=== PATIENT | female | born 1950 | race Caucasian/White ===

== ENCOUNTER → 2018-04-12 10:23 | Outpatient (CLI) | payer MEDICARE, SELFPAY ==
--- NOTE | 2018-04-12 10:33 | XR_ITS ---
XR chest 2V HISTORY: ITS.REASON: PNEUMONIA ORDERING PHYSICIAN: Michele Hines MD PATIENT AGE: 68 years COMPARISON: 05/23/2015 FINDINGS: The cardiomediastinal silhouette and pulmonary vascularity are within normal limits. There is mild hyperinflation with attenuation of the peripheral pulmonary vessels consistent with small airway disease. No lobar consolidation or collapse. No acute bony anomalies. IMPRESSION: Hyperinflation suggesting small airway disease such as bronchitis or asthma
== END ==
PROVIDERS: PCP Family Medicine; Visit Provider Family Medicine
DX: J18.1 Lobar pneumonia, unspecified organism (principal)
CPT/HCPCS: 71046

== ENCOUNTER 2021-12-30 07:19 | Emergency (ER) | payer MEDICARE, SELFPAY ==
[2021-12-30] VITALS (13 sets, daily range): BP systolic 109–177; BP diastolic 65–90; PULSE 62–110; RESP 16–22; TEMP 36.6–37.3; O2SAT 97–99; BMI 20.1
--- NOTE | 2021-12-30 | ECG_ITS ---
APPROVED REPORT Exam: Resting ECG HR:95 bpm ECG Measurements Heart Rate 95 AXES OR 150 P 90 QRSd 76 QRS 60 QT 319 T 82 QTc 372 Conclusion SINUS RHYTHM POSSIBLE LEFT ATRIAL ENLARGEMENT [-0.1mV P-WAVE IN V1/V2] BORDERLINE ECG UNCONFIRMED REPORT Electronically signed by : Michele Auguste MD 12/30/2021 14:46:42
--- NOTE | 2021-12-30 07:23 | XR_ITS ---
FINAL REPORT TECHNIQUE: Single view chest CLINICAL HISTORY: Midsternal chest pain COMPARISON: 04/12/2018 FINDINGS: A single view of the chest was obtained. The heart and mediastinum are within normal limits. The lungs are clear. There is no pneumothorax. Osseous structures are unremarkable. IMPRESSION: No acute cardiopulmonary process. Reviewed, Interpreted and Dictated by Jr Osman III, MD Transcribed by Sybil Gu Authenticated and [facility]
--- NOTE | 2021-12-30 07:28 | PC.NURSE ---
obtained EKG upon arrival
[2021-12-30 07:35] LABS: Basophils # 0.1 K/mm3 (0-0.2); Basophils % 1.3 % (0.1-2.0); Eosinophils # 0.1 K/mm3 (0.0-0.4); Eosinophils % 1.7 % (0.1-12.0); Hematocrit 41.1 % (37.0-47.0); Hemoglobin 13.3 g/dL (12.2-16.2); Lymphocytes # 0.7 K/mm3 (0.7-4.5); Lymphocytes % 15.3 % (10-50); Mean Corpuscular HGB Conc 32.4 g/dL (31.8-35.4); Mean Corpuscular Hemoglobin 32.5 pg (27.0-31.2); Mean Corpuscular Volume 100.3 fl (81-99); Mean Platelet Volume 8.2 fl (7.4-10.4); Monocytes # 0.4 K/mm3 (0.1-1.0); Neutrophils # 3.2 K/mm3 (1.8-7.8); Neutrophils % 73.7 % (37.0-80.0); Platelet Count 269 K/mm3 (142-424); Red Cell Distribution Width 13.1 % (11.5-17.5); White Blood Count 4.4 K/mm3 (4.8-10.8)
[2021-12-30 07:44] LABS: Potassium 3.9 mmoL/L (3.5-5.1)
[2021-12-30 07:45] LABS: Blood Urea Nitrogen 11 mg/dl (7-17); Calcium 9.8 mg/dl (8.4-10.2); Carbon Dioxide 24 mmol/L (22.0-30.0); Chloride 108 mmol/L (98-107); Creatinine Clearance Estimated 42 mL/min (50-200); Estimated Glomerular Filt Rate 83 ml/min (>60); GFR (African American) 100 ML/MIN (>60); Glucose 103 mg/dl (74-100)
--- NOTE | 2021-12-30 07:49 | PC.NURSE ---
rad notified of cxr order
[2021-12-30 07:57] LABS: Troponin I < 0.01 ng/ml (0.00-0.034)
[2021-12-30 08:05] LABS: Influenza B, PCR Not Detected (NotDetected)
[2021-12-30 08:07] LABS: Influenza A, PCR Not Detected (NotDetected)
[2021-12-30 08:33] LABS: Coronavirus 19, PCR Detected (NotDetected)
--- NOTE | 2021-12-30 08:38 | CT_ITS ---
FINAL REPORT CLINICAL HISTORY: chest pain, covid +, hx of smoking FINDINGS: Thin section axial CT images of the chest were obtained with contrast. 3D reformatted images were also obtained. This study was performed with techniques to keep radiation doses as low as reasonably achievable (ALARA). Individualized dose reduction techniques using automated exposure control or adjustment of mA and/or kV according to the patient's size were employed. There is no evidence of pulmonary embolism. There is no evidence of thoracic aortic aneurysm or dissection. There are multiple small mediastinal lymph nodes. There is no axillary mass or adenopathy. There is mild scarring. There is mild dependent atelectasis. There is no evidence of pulmonary mass or nodule. No localized inflammatory process is seen within the lungs. Limited images of the upper abdomen are unremarkable. IMPRESSION: No evidence of pulmonary embolism. Mild dependent atelectasis. Reviewed, Interpreted and Dictated by Jr Osman III, MD Transcribed by Narinder Cruz Authenticated and [facility]
--- NOTE | 2021-12-30 08:40 | HMH.EDGENADL ---
Discharge Plan Disposition Patient Disposition: Home, Self-Care Condition: Good Prescriptions Prescriptions: New Paxlovid (EUA) 300 mg (150 mg x 2)-100 mg tablets,dose pack See Rx Instructions .Route .COMPLEX Qty: 30 0RF Rx Instructions: take TWO 150 mg tablets of nirmatrelvir with ONE 100 mg tablet of ritonavir twice daily for 5 days No Action pravastatin 40 mg Tablet 40 mg PO DAILY Referrals Follow up/Referrals: Michele Hines MD [Primary Care Provider] - See instructions Activity Restrictions/Add. Instructions Additional Instructions/Restrictions: Paxlovid as prescribed. Additional instructions for CHEST PAIN: See your physician as soon as possible for further evaluation. Return immediately if worsening chest pain, vomiting, shortness of breath, fever, coughing of blood. ADDITIONAL INSTRUCTIONS FOR COVID-19: Rest, drink plenty of fluids. Tylenol or Ibuprofen for fever and/or aches and pains. Monitor your symptoms. IF YOU HAVE AN EMERGENCY WARNING SIGN (INCLUDING TROUBLE BREATHING), SEEK EMERGENCY MEDICAL CARE IMMEDIATELY. COVID-19 Isolation: People with COVID-19 should isolate for 5 days. Then if they are asymptomatic (no symptoms) or their symptoms are resolving (without fever for 24 hours), follow that by 5 days of wearing a mask when around others to minimize the risk of infecting people you encounter. If you test positive for COVID-19 and never develop symptoms, day 0 is the day of your positive viral test (based on the date you were tested) and day 1 is the first full day after your positive test. If you develop symptoms after testing positive, your 5-day isolation period must start over. Day 0 is your first day of symptoms. Day 1 is the first full day after your symptoms developed. What to do: Stay in a separate room from other household members, if possible. Use a separate bathroom, if possible. Avoid contact with other members of the household and pets. Don?t share personal household items, like cups, towels, and utensils. Wear a mask when around other people if able. Clinical Impressions Clinical Impression: Atypical chest pain, COVID-19 virus infection Discharge ED Provider: Durga Godoy Adult HPI General Chief complaint: Chest Pain Stated complaint: chest pain Time Seen by Provider: 12/30/21 08:10 Mode of Arrival: Ambulatory Source of Information: Patient Limitations: No Limitations Description of Symptoms (Recalled from ER Triage Doc. by RN): to ed per pvt car with c/o sharp rt side chest pain radiating to rt side back woke her up at 5 am. pt c/o sob, nausea denies diaphoresis. pt denies any pain or swellling in lower legs. History of Present Illness HPI narrative: Patient states she was awakened by chest pain at 5 AM. Pain is in her center of her chest and goes around her right lateral chest. Some mild shortness of breath, nausea without vomiting. She has had a mild cough recently. She had a headache yesterday. Current pain is 0/10. She has been treated with nitroglycerin prior to my arrival. She has no known heart disease or lung disease. She is a former smoker. She has hypertension. Hyperlipidemia. She does not have hypertension or diabetes. She has never had a cardiac evaluation. Related Data Home Medications Medication Instructions Recorded Confirmed pravastatin 40 mg tablet 40 mg PO DAILY Cholesterol 12/30/21 12/30/21 Previous Rx's Medication Instructions Recorded nirmatrelvir 300 mg (150 mg See Rx Instructions .Route 12/30/21 x2)-ritonavir 100 mg tablet,dose .COMPLEX #30 tabs pack(EUA) (Paxlovid) Allergies Allergy/AdvReac Type Severity Reaction Status Date / Time No Known Allergies Allergy Unverified 04/11/17 14:24 [facility] Social History (Updated 12/30/21 @ 08:02 by Cheryle Hand RN) Smoking Status: Never smoker Travel in the last 8 weeks: None ROS Obtained: Yes Systems review
--- NOTE | 2021-12-30 08:46 | PC.NURSE ---
RADIOLOGY FOR A CT
--- NOTE | 2021-12-30 08:58 | PC.NURSE ---
PT BACK FROM RADIOLOGY
--- NOTE | 2021-12-30 10:02 | PC.NURSE ---
ROUNDED ON PT AND ASKED IF THEY NEEDED ANYTHING. PT STATTED THAT THEY WERE OK AND DIDNT NEED ANYTHING AT THIS TIME
--- NOTE | 2021-12-30 10:25 | PC.NURSE ---
2nd Trop sent
[2021-12-30 11:34] LABS: Anion Gap 11.9 mEq/L (5-15); Sodium 140 mmol/L (136-145)
--- NOTE | 2021-12-30 11:35 | PC.NURSE ---
contacted lab to check on status of second troponin, lab states they are rerunning specimen
[2021-12-30 11:49] LABS: Troponin I < 0.01 ng/ml (0.00-0.034)
== END 2021-12-30 12:29 | disposition home or self-care (01) ==
PROVIDERS: Emergency Medicine; Emergency Provider Emergency Medicine; PCP Family Medicine
DX: U07.1 COVID-19 (principal); R07.9 Chest pain, unspecified; Z79.899 Other long term (current) drug therapy; E78.5 Hyperlipidemia, unspecified
CPT/HCPCS: 71045; 71275; 80048; 84484; 85025; 93005; 96365; 99285; C9803; Q9967; U0003; U0005

== ENCOUNTER → 2022-03-23 07:46 | Outpatient (CLI) | payer MEDICARE, SELFPAY ==
--- NOTE | 2022-03-23 08:54 | XR_ITS ---
FINAL REPORT CLINICAL HISTORY: RT LEG PAIN,CYST OF RT KNEE FINDINGS: 2 views of the right knee were obtained. There is no acute fracture or dislocation. There is mild narrowing of the medial compartment joint space with mild subchondral sclerosis. A small joint effusion is present. IMPRESSION: Mild medial compartment osteoarthritis. Small joint effusion. Reviewed, Interpreted and Dictated by Ken Barahona MD Transcribed by Narinder Cruz Authenticated and [facility]
== END ==
PROVIDERS: PCP Family Medicine; Visit Provider Family Medicine
DX: M79.604 Pain in right leg (principal); M71.21 Synovial cyst of popliteal space [Baker], right knee
CPT/HCPCS: 73560

== ENCOUNTER → 2022-03-25 10:44 | Outpatient (CLI) | payer MEDICARE, SELFPAY ==
--- NOTE | 2022-03-25 | CA_ITS ---
FINAL REPORT TECHNIQUE: Multiple transverse and longitudinal images were performed of right the femoral-popliteal deep venous system with augmentation and compression maneuvers. CLINICAL HISTORY: right leg pain x 1 week. Patient denies trauma. States her right leg hurts in posterior portion and extends from groin to the ankle. hyperlipidemia and PRN 81 mg ASA. FINDINGS: Right lower extremity duplex ultrasound demonstrates normal flow in the deep venous system. There is no abnormal echogenicity to suggest thrombus. There is normal compression and augmentation. IMPRESSION: No evidence of right DVT. Reviewed, Interpreted and Dictated by Ken Barahona MD Transcribed by Dayna Coy Authenticated and [facility]
== END ==
LOC: RT 10:47
PROVIDERS: PCP Family Medicine; Visit Provider Family Medicine
DX: M79.604 Pain in right leg (principal)
CPT/HCPCS: 93971

== ENCOUNTER 2024-01-25 13:05 | Outpatient (CLI) | payer MEDICARE, SELFPAY ==
--- NOTE | 2024-01-25 13:08 | MM_ITS ---
PROCEDURE INFORMATION: Exam: Bilateral Screening 3D Mammography Exam date and time: 01/25/2024 1:00 PM Age: 74 years old Clinical indication: Screening examination TECHNIQUE: Imaging protocol: Bilateral Screening tomosynthesis and 2D mammography including computer-aided detection (CAD) when performed. COMPARISON: [facility] DIG MAMM-SCREEN DERRICK 07/31/2015 8:45 AM FINDINGS: MAMMOGRAPHY: Breast composition: The breasts are heterogeneously dense, which may obscure small masses. Mass: None. Architectural distortion: None. Calcifications: No suspicious calcifications. Asymmetric density: None. Skin thickening: None. Axillary adenopathy: None. IMPRESSION: No mammographic evidence of malignancy. Annual screening is recommended unless otherwise clinically indicated. ASSESSMENT: BI-RADS Category 1: Negative.
== END 2024-01-25 23:59 | disposition home or self-care (01) ==
LOC: RAD 13:05
PROVIDERS: PCP Nurse Practitioner; Visit Provider Nurse Practitioner
DX: Z12.31 Encounter for screening mammogram for malignant neoplasm of breast (principal)
CPT/HCPCS: 77063; 77067

== ENCOUNTER 2024-03-26 06:14 | Day surgery (SDC) | payer MEDICARE, SELFPAY ==
[2024-03-19 15:48] VITALS: BMI 20.1
[2024-03-26] VITALS (9 sets, daily range): BP systolic 80–144; BP diastolic 52–91; PULSE 66–97; RESP 18; TEMP 36.1; O2SAT 98–100
[2024-03-26] MEDS: LACTATED RINGERS 1000ML 1,000 ML 25 ML IV (07:08)
--- NOTE | 2024-03-26 07:22 | EXP.ANES.CKL ---
[facility] Disclaimer: The information contained in this section may have been updated after the patient was seen, as this information can be updated by other users. Medical History Hyperlipidemia Surgical History History of tubal ligation Family History Mother Cancer Social History Smoking Status: Never smoker alcohol intake: former substance use type: denies use current occupational status: retired Travel in the last 8 weeks: None [facility] Anesthesia Checklist Patient Identification Patient Identification: Arm Band, Family and Verbal (Name & ) Structural Data Admitted From: Home Planned Operative Procedure/s: Colonoscopy Consent for Planned Operative Procedure(s) Verified: Yes Verified Documents: Surgical Consent and History and Physical NPO Status Verified Time NPO: 05:15 Chart Verification Results Verified: CBC, BMP, ECG and Chest Xray Additional verifications Patient : No Anesthesia Reactions: No Cardiovascular Assessment Heart Sounds: S1 & S2 Pulse Rhythm: Irregular Peripheral Edema: No Airway Assessment Mallampati Score:: Class III (Very small mouth opening) C-Spine Mobility Assessed: Yes (Limited extension & flexion) TMJ Mobility Assessed: Yes Dentition: Dentures-good fit (Upper in. Nothing loose per pt.) Neurological Assessment Level of Consciousness: Awake, Alert, Appropriate and Follows Commands Hx Seizures: No Numbness or tingling in extremities: No Anesthesia Plan Anesthesia Risk discussed: Yes Anesthesia Plan: Verified ASA Class: II Anesthesia Type: MAC
--- NOTE | 2024-03-26 09:04 | HMH.SCOPE ---
Procedure: Date: 03/26/24 Patient Date of :: 1950 Procedure Performed:: Colonoscopy with polypectomy Indications:: Positive Cologuard Performing Provider:: Cristian Andrews MD Referring Provider:: . Sedation:: Monitored anesthesia care Procedure:: After informed consent was obtained the patient was taken to the endoscopy suite. Sedation ensued after the patient was transferred to the left lateral decubitus position. Pulse, blood pressure, and oxygen saturation were monitored throughout the procedure. Digital rectal exam revealed no significant abnormality. The colonoscope was placed in position. The entire colon was evaluated. The colonoscope was carefully removed and the patient was transferred to recovery in stable condition. Please see findings and specimens below for detail. Findings:: Bowel preparation fair Fairly severe tortuosity (particularly sigmoid) Severe spasticity throughout colon Hemorrhoidal cushions Polyps (see specimens) Specimens:: Lobulated polyp at appendiceal orifice (cold snare and cold biopsy forceps) Lobulated sessile right colon polyp (cold snare) Lobulated sessile polyp at 30 cm (cold snare) Recommendations:: Timing of repeat colonoscopy is pending pathology but likely be between 6-12 months secondary to location of periappendiceal polyp, spasticity, tortuosity, and recent positive Cologuard. Consider barium enema secondary to positive Cologuard and concomitant spasticity/tortuosity. Complications:: No immediate Estimated blood obtained (mL): 1 Colonoscopy Component Colonoscopy Component Was a colonoscopy performed during today's procedure?: Yes Recommended follow up colonoscopy of at least 10 years?: No If no, follow up colonoscopy recommended in ___ years?: (See above) Reason for not recommending >/= 10 yr follow-up interval?: (See above)
== END 2024-03-26 11:03 | disposition home or self-care (01) ==
PROVIDERS: PCP Nurse Practitioner; Visit Provider Surgery
PROC: 0DJD8ZZ Inspection of Lower Intestinal Tract, Via Natural or Artificial Opening Endoscopic (ICD-10-PCS; CPT 45385; principal; 2024-03-26 07:30)
DX: R19.5 Other fecal abnormalities (principal); Z12.11 Encounter for screening for malignant neoplasm of colon; K64.9 Unspecified hemorrhoids; K63.5 Polyp of colon; D12.2 Benign neoplasm of ascending colon; D12.5 Benign neoplasm of sigmoid colon
CPT/HCPCS: 45385; 88305; J2704; J7120

== ENCOUNTER 2024-10-18 21:51 | Emergency (ER) | payer MEDICARE, SELFPAY ==
[2024-10-18 21:57] VITALS: BP 165/142; PULSE 62; O2SAT 100
[2024-10-18 22:00] VITALS: BP 165/142; PULSE 62; RESP 18; TEMP 36.7; O2SAT 100; BMI 20.1
[2024-10-18 22:01] VITALS: BP 167/106; PULSE 71; O2SAT 100
--- NOTE | 2024-10-18 22:25 | CT_ITS ---
PROCEDURE INFORMATION: Exam: CT Abdomen And Pelvis With Contrast Exam date and time: 10/18/2024 11:24 PM Age: 74 years old Clinical indication: Abdominal pain; Additional info: Rlq pain TECHNIQUE: Imaging protocol: Computed tomography of the abdomen and pelvis with contrast. Radiation optimization: All CT scans at this facility use at least one of these dose optimization techniques: automated exposure control; mA and/or kV adjustment per patient size (includes targeted exams where dose is matched to clinical indication); or iterative reconstruction. Contrast material: ISOVUE; Contrast volume: 75 ml; Contrast route: IV; COMPARISON: CT ANGIO CHEST PE PROTOCOL 12/30/2021 8:46 AM FINDINGS: Liver: Normal. No mass. Gallbladder and biliary ducts: Normal. No calcified stones. No ductal dilation. Pancreas: Normal. No ductal dilation. Spleen: Normal. No splenomegaly. Adrenal glands: Normal. No mass. Kidneys and ureters: Normal. No hydronephrosis. Stomach and bowel: Unremarkable. No obstruction. No mucosal thickening. Appendix: No evidence of appendicitis. Intraperitoneal space: Unremarkable. No free air. No significant fluid collection. Vasculature: Moderate atherosclerotic changes are seen within the abdominal aorta and branch vasculature without evidence of aneurysm. Lymph nodes: Unremarkable. No enlarged lymph nodes. Urinary bladder: Unremarkable as visualized. Reproductive: 5.0 x 4.5 cm right pelvic mass located immediately adjacent to the right-side of the vagina and lower uterine segment. Bones/joints: Unremarkable. No acute fracture. Soft tissues: Unremarkable. IMPRESSION: Complex right ovarian mass versus exophytic fibroid. Consider further evaluation with pelvic ultrasound.
[2024-10-18 22:30] VITALS: BP 157/92; PULSE 85; O2SAT 100
[2024-10-18 22:31] LABS: Basophils # 0.1 K/mm3 (0-0.2); Basophils % 1.1 % (0.1-2.0); Eosinophils # 0.2 Kmm3 (0.0-0.4); Eosinophils % 1.7 % (0.1-12.0); Hematocrit 38.9 % (37.0-47.0); Hemoglobin 13.3 g/dL (12.2-16.2); Immature Granulocytes # 0.04 10^3uL; Immature Granulocytes % 0.4 %; Lymphocytes % 30.7 % (10-50); Mean Corpuscular HGB Conc 34.2 g/dL (31.8-35.4); Mean Corpuscular Hemoglobin 31.5 pg (27.0-31.2); Mean Corpuscular Volume 92.2 fl (81-99); Mean Platelet Volume 10.4 fl (7.4-10.4); Monocytes # 0.5 K/mm3 (0.1-1.0); Monocytes % 4.8 % (1.7-9.3); Neutrophils % 61.3 % (37.0-80.0); Nucleated Red Blood Cells # 0 10^3/uL; Nucleated Red Blood Cells % 0 %; Platelet Count 328 K/mm3 (142-424); Red Blood Count 4.22 M/mm3 (4.20-5.40); Red Cell Distribution Width 12.5 % (11.5-17.5); Red Cell Distribution Width-SD 42.5 fL; White Blood Count 9.8 K/mm3 (4.8-10.8)
[2024-10-18] MEDS: ONDANSETRON 4MG/2ML VIAL 4 MG IV (22:32)
[2024-10-18] MEDS: KETOROLAC 30MG/ML VIAL 15 MG IV (22:32)
[2024-10-18] MEDS: HYDROMORPHONE 2MG/ML SYRINGE 0.5 MG IV (22:33)
[2024-10-18 22:50] LABS: Alanine Aminotransferase 7 U/L (12-78); Albumin Level 4.4 g/dl (3.5-5.0); Albumin/Globulin Ratio 1.1 (1.1-1.8); Alkaline Phosphatase 84 U/L (38-126); Anion Gap 13.2 mEq/L (5-15); Aspartate Amino Transferase 23 U/L (14-36); Bilirubin,Total 0.7 mg/dl (0.2-1.3); Blood Urea Nitrogen 16 mg/dl (7-17); Calcium 11.1 mg/dl (8.4-10.2); Carbon Dioxide 25 mmol/L (22.0-30.0); Chloride 101 mmol/L (98-107); Creatinine Clearance Estimated 40 mL/min (50-200); Estimated Glomerular Filt Rate 62 ml/min (>60); GFR (African American) 74 ML/MIN (>60); Glucose 156 mg/dl (74-100); Potassium 4.2 mmoL/L (3.5-5.1); Sodium 135 mmol/L (136-145); Total Protein,Serum 8.4 g/dl (6.3-8.2)
[2024-10-18 22:56] LABS: Lactic Acid 1.1 mmol/L (0.7-2.1)
[2024-10-18 23:00] VITALS: BP 148/74; PULSE 63; O2SAT 99
--- NOTE | 2024-10-18 23:03 | ED_ITS ---
Discharge Plan Disposition Patient Disposition: Home, Self-Care Prescriptions Prescriptions: No Action hydroxyzine HCl 25 mg tablet 25 mg PO DAILY Patient Comments: TAKE 1 TABLET BY MOUTH EVERY 8 HOURS NEEDED pravastatin 40 mg Tablet 40 mg PO DAILY Referrals Follow up/Referrals: Thai (ED),VINEET Howell [Primary Care Provider, Emergency Medicine] - See instructions Activity Restrictions/Add. Instructions Additional Instructions/Restrictions: Please follow-up with your primary care provider to get further workup including ultrasound of the pelvis for further assessment of the abnormality noted on CT scan. Please take Tylenol and ibuprofen as needed for pain. Clinical Impressions Clinical Impression: Pelvic mass in female, Abdominal pain Instructions Patient Instructions: DI for Acute Abdominal Pain Print Language Print Language: Tajik Discharge ED Provider: Tommie Badillo General Adult HPI <Abran Stein MD - Last Filed: 10/18/24 23:10> General Chief complaint: Abdominal Pain Stated complaint: Right side pain,vomiting Time Seen by Provider: 10/18/24 21:58 Mode of Arrival: Ambulatory Source of Information: Patient Description of Symptoms (Recalled from ER Triage Doc. by RN): pt c/o right sided abdominal pain that started a couple hours ago. patient states she has been having nausea and vomiting but denies any diarrhea or urinary symptoms. History of Present Illness HPI narrative: Please note that above description of symptoms, in this electronic medical record under categorization of recalled from ER triage doctor by RN are reflective of an initial nursing assessment, however, is not reflective of my full history and physical exam that was personally taken and clarified. Consequentially, this preceding description of symptoms, which may include the patient's categorized chief complaint in the EMR, do not reflect my personal clinical impression, and the ultimate description of history of present illness and patient stated complaints should be deferred to this section of the note. Unless stated otherwise or congruent with this section of the note, additional signs, symptoms, or incongruence should be interpreted as inaccurate with my clinical impression. Related Data Home Medications ?Medication ?Instructions ?Recorded ?Confirmed pravastatin 40 mg tablet 40 mg PO DAILY Cholesterol 0 12/30/21 03/19/24 hydroxyzine HCl 25 mg tablet 25 mg PO DAILY 03/26/24 1 05/27/23 Allergies Allergy/AdvReac Type Severity Reaction Status Date / Time No Known Allergies Allergy Verified 03/19/24 15:47 PFSH <Abran Stein MD - Last Filed: 10/18/24 23:10> [facility] Disclaimer: The information contained in this section may have been updated after the patient was seen, as this information can be updated by other users. Medical History (Updated 10/19/24 @ 00:46 by Tommie Badillo MD) Hyperlipidemia Surgical History History of tubal ligation Family History Mother Cancer Social History (Updated 03/26/24 @ 07:24 by Estella Gamez CRNA) Smoking Status: Never smoker alcohol intake: former substance use type: denies use current occupational status: retired Travel in the last 8 weeks?: None Have you lived/traveled outside US in past 30 days?: No Contact w/someone who lives/traveled outside US past 30 days?: No Exposure to someone with infectious disease in past 14 days?: No Do you have a fever (greater than 100.4 F or 38 C)?: No Have you tested positive for COVID-19?: No Exposed to someone with COVID-19 in past 14 days?: No Do you have a sore throat?: No Do you have a cough?: No Do you have any weakness?: No Do you have any diarrhea?: No Are you experiencing any unusual bleeding?: No Do you have any muscle aches/pain?: No Do you have any abdominal pain?: No Are you experiencing loss of taste or smell?: No <Abran Stein MD - Last Filed: 10/18/24 23:10> ROS Obtained: Yes All systems reviewed & no additional complaints except as documented Physical Exam <Abran Stein MD - Last Filed: 10/18/24 23:10> General General appearance: alert and in distress (Secondary to pain) Head Head exam: atraumatic and normocephalic Eye Eye exam: Present normal appearance, PERRL and EOMI Neck Neck exam: Present normal inspection, full ROM and trachea midline Respiratory Respiratory exam: Absent respiratory distress, wheezes, stridor, accessory muscle use or prolonged expiratory phase Cardiovascular Cardiovascular exam: Present other (Pulses equal symmetric in upper and lower extremities) Abdominal Exam Abdominal exam: Present soft; Absent distention, tenderness or pulsatile mass Extremities Exam Extremities exam: Absent edema Neurological Exam Neurological exam: Present alert, oriented X3 and CN II-XII intact; Absent motor sensory deficit Skin Skin exam: Present warm and dry; Absent diaphoresis or erythema Medical Decision Making <Abran Stein MD - Last Filed: 10/18/24 23:10> Medical Records Medical records reviewed: Yes I reviewed the patient's medical records. Screening: Per USPSTF and CDC recommendations, given the prevalence of disease in our region, it is our hospital?s policy to screen for HIV and viral Hepatitis for all patients aged 18 and over and those with ongoing risk factors. Lucas Inquiry Pt receiving controlled substance: No Lucas was queried for this patient: No Vital Signs: 10/18/24 21:57 10/18/24 22:00 10/18/24 22:01 Temperature 98.1 F Temperature Source Oral Pulse Rate 62 71 Pulse Rate [Left] 62 Respiratory Rate 18 Blood Pressure 165/142 H 167/106 H Blood Pressure [Right Arm] 165/142 H Blood Pressure Mean [Right Arm] 149 Blood Pressure Source [Right Arm] Automatic Cuff Blood Pressure Position [Right Arm] Sitting 02 Sat by Pulse Oximetry 100 100 100 Oxygen Delivery Method Room Air Room Air Room Air 10/18/24 22:30 10/18/24 23:00 Temperature Temperature Source Pulse Rate 85 63 Pulse Rate [Left] Respiratory Rate Blood Pressure 157/92 H 148/74 H Blood Pressure [Right Arm] Blood Pressure Mean [Right Arm] Blood Pressure Source [Right Arm] Blood Pressure Position [Right Arm] 02 Sat by Pulse Oximetry 100 99 Oxygen Delivery Method Room Air Lab Data Lab Results 10/18/24 22:06: WBC 9.8, RBC 4.22, Hgb 13.3, Hct 38.9, MCV 92.2, MCH 31.5 H, MCHC 34.2, RDW 12.5, Plt Count 328, MPV 10.4, Neut % (Auto) 61.3, Lymph % (Auto) 30.7, [place] % (Auto) 4.8, Eos % (Auto) 1.7, Baso % (Auto) 1.1, Neut # (Auto) 6.0, Lymph # (Auto) 3.0, [place] # (Auto) 0.5, Eos # (Auto) 0.2, Baso # (Auto) 0.1, S odium 135 L, Potassium 4.2, Chloride 101, Carbon Dioxide 25, Anion Gap 13.2, BUN 16, Creatinine 0.90, Estimated Creat Clear 40, Estimated GFR 62, Est GFR ( Amer) 74, Glucose 156 H, Calcium 11.1 H, Total Bilirubin 0.7, AST 23, A LT 7 L, Alkaline Phosphatase 84, Total Protein 8.4 H, Albumin 4.4, Globulin 4.0 H, Albumin/Globulin Ratio 1.1 10/18/24 22:41: Lactate 1.1 10/18/24 22:06 10/18/24 22:06 Orders (Tests/Meds): ED MEDICATIONS Generic Name Dose Route Start Last Admin Trade Name Freq PRN Reason Stop Dose Admin Sodium Chloride 10 ml 10/18/24 23:35 10/18/24 23:36 Sodium Chloride 0.9% 10ml Syr (Rad Only) IV 11/17/24 23:34 10 ml NEEDED PRN Administration Maintain IV Site Discontinued Medications Generic Name Dose Route Start Last Admin Trade Name Freq PRN Reason Stop Dose Admin Hydromorphone HCl 0.5 mg 10/18/24 22:25 10/18/24 22:33 Hydromorphone 2mg/Ml Syringe IV 10/18/24 22:26 0.5 mg ONCE ONE Administration Iopamidol 75 ml 10/18/24 23:35 10/18/24 23:36 Iopamidol-370 (76%);100ml Bottle IV 10/18/24 23:36 75 ml ONCE ONE Administration Ketorolac Tromethamine 15 mg 10/18/24 22:25 10/18/24 22:32 Ketorolac 30mg/Ml Vial IV 10/18/24 22:26 15 mg ONCE ONE Administration Ondansetron HCl 4 mg 10/18/24 22:25 10/18/24 22:32 Ondansetron 4mg/2ml Vial IV 10/18/24 22:26 4 mg ONCE ONE Administration ORDERS Category Date Time Status CT abdomen pelvis w con Stat Cat Scan 10/18/24 22:25 Completed CBC w/Auto Diff [Complete Blood Count Auto Diff] Stat Lab 10/18/24 22:06 Completed CMP [Comprehensive Metabolic Panel] Stat Lab 10/18/24 22:06 Completed Lactic Acid Stat Lab 10/18/24 22:41 Completed UA [Urinalysis and Microscopic] Stat Lab 10/18/24 22:25 Ordered Medical Decision Narrative: 74-year-old female no relevant medical history other than hypertension presenting with abdominal pain. States that it started a couple hours prior to arrival. Vomiting this nonbloody, nonbilious. Last bowel movement was today normal for her, no diarrhea or blood. States that she has had decreased p.o. intake due to decreased appetite. Pain is right lower quadrant, radiates to her right flank severe in intensity and nothing in particular makes it better. Pressure makes it worse. Change with position make it worse. Came in for further evaluation. History obtained to patient. On arrival, obviously in pain. Abdomen is diffusely tender, primarily tender in the right lower quadrant. Peritonitis on physical exam. Tachycardic, regular rhythm. No overlying skin changes. Differential includes acute appendicitis, acute ruptured appendicitis versus other ruptured viscus, diverticulitis, hepatitis, PUD, among others. Less like to be mesenteric ischemia. Patient has no history of atrial fibrillation, not currently in atrial fibrillation. Labs ordered, CT scan ordered. On independent interpretation of laboratory workup, nonactionable CBC or chemistry. Negative lactate. CT scan pending at time of handoff to oncoming physician. Continuous [employer] Machine Operator disclaimer Much of this encounter note is an electronic machine maintenance supervisor spoken language to printed text. Electronic machine maintenance supervisor of the spoken language may permit errors. Although I have reviewed the note, some errors may still exist. <Tommie Badillo MD - Last Filed: 10/19/24 00:49> Lucas Inquiry Risks and benefits of using a controlled substance: were not discussed with pt by me Vital Signs: 10/18/24 21:57 10/18/24 22:00 10/18/24 22:01 Temperature 98.1 F Temperature Source Oral Pulse Rate 62 71 Pulse Rate [Left] 62 Respiratory Rate 18 Blood Pressure 165/142 H 167/106 H Blood Pressure [Right Arm] 165/142 H Blood Pressure Mean [Right Arm] 149 Blood Pressure Source [Right Arm] Automatic Cuff Blood Pressure Position [Right Arm] Sitting 02 Sat by Pulse Oximetry 100 100 100 Oxygen Delivery Method Room Air Room Air Room Air 10/18/24 22:30 10/18/24 23:00 Temperature Temperature Source Pulse Rate 85 63 Pulse Rate [Left] Respiratory Rate Blood Pressure 157/92 H 148/74 H Blood Pressure [Right Arm] Blood Pressure Mean [Right Arm] Blood Pressure Source [Right Arm] Blood Pressure Position [Right Arm] 02 Sat by Pulse Oximetry 100 99 Oxygen Delivery Method Room Air Lab Data Lab Results 10/18/24 22:06: WBC 9.8, RBC 4.22, Hgb 13.3, Hct 38.9, MCV 92.2, MCH 31.5 H, MCHC 34.2, RDW 12.5, Plt Count 328, MPV 10.4, Neut % (Auto) 61.3, Lymph % (Auto) 30.7, [place] % (Auto) 4.8, Eos % (Auto) 1.7, Baso % (Auto) 1.1, Neut # (Auto) 6.0, Lymph # (Auto) 3.0, [place] # (Auto) 0.5, Eos # (Auto) 0.2, Baso # (Auto) 0.1, S odium 135 L, Potassium 4.2, Chloride 101, Carbon Dioxide 25, Anion Gap 13.2, BUN 16, Creatinine 0.90, Estimated Creat Clear 40, Estimated GFR 62, Est GFR ( Amer) 74, Glucose 156 H, Calcium 11.1 H, Total Bilirubin 0.7, AST 23, A LT 7 L, Alkaline Phosphatase 84, Total Protein 8.4 H, Albumin 4.4, Globulin 4.0 H, Albumin/Globulin Ratio 1.1 10/18/24 22:41: Lactate 1.1 Orders (Tests/Meds): ED MEDICATIONS Generic Name Dose Route Start Last Admin Trade Name Freq PRN Reason Stop Dose Admin Sodium Chloride 10 ml 10/18/24 23:35 10/18/24 23:36 Sodium Chloride 0.9% 10ml Syr (Rad Only) IV 11/17/24 23:34 10 ml NEEDED PRN Administration Maintain IV Site Discontinued Medications Generic Name Dose Route Start Last Admin Trade Name Freq PRN Reason Stop Dose Admin Hydromorphone HCl 0.5 mg 10/18/24 22:25 10/18/24 22:33 Hydromorphone 2mg/Ml Syringe IV 10/18/24 22:26 0.5 mg ONCE ONE Administration Iopamidol 75 ml 10/18/24 23:35 10/18/24 23:36 Iopamidol-370 (76%);100ml Bottle IV 10/18/24 23:36 75 ml ONCE ONE Administration Ketorolac Tromethamine 15 mg 10/18/24 22:25 10/18/24 22:32 Ketorolac 30mg/Ml Vial IV 10/18/24 22:26 15 mg ONCE ONE Administration Ondansetron HCl 4 mg 10/18/24 22:25 10/18/24 22:32 Ondansetron 4mg/2ml Vial IV 10/18/24 22:26 4 mg ONCE ONE Administration ORDERS Category Date Time Status CT abdomen pelvis w con Stat Cat Scan 10/18/24 22:25 Completed CBC w/Auto Diff [Complete Blood Count Auto Diff] Stat Lab 10/18/24 22:06 Completed CMP [Comprehensive Metabolic Panel] Stat Lab 10/18/24 22:06 Completed Lactic Acid Stat Lab 10/18/24 22:41 Completed UA [Urinalysis and Microscopic] Stat Lab 10/18/24 22:25 Ordered Medical Decision Narrative: 74-year-old female no relevant medical history other than hypertension presenting with abdominal pain. States that it started a couple hours prior to arrival. Vomiting this nonbloody, nonbilious. Last bowel movement was today normal for her, no diarrhea or blood. States that she has had decreased p.o. intake due to decreased appetite. Pain is right lower quadrant, radiates to her right flank severe in intensity and nothing in particular makes it better. Pressure makes it worse. Change with position make it worse. Came in for further evaluation. History obtained to patient. On arrival, obviously in pain. Abdomen is diffusely tender, primarily tender in the right lower quadrant. Peritonitis on physical exam. Tachycardic, regular rhythm. No overlying skin changes. Differential includes acute appendicitis, acute ruptured appendicitis versus other ruptured viscus, diverticulitis, hepatitis, PUD, among others. Less like to be mesenteric ischemia. Patient has no history of atrial fibrillation, not currently in atrial fibrillation. Labs ordered, CT scan ordered. On independent interpretation of laboratory workup, nonactionable CBC or chemistry. Negative lactate. CT scan pending at time of handoff to oncoming physician. Continuous Mining Machine Operator disclaimer Much of this encounter note is an electronic machine maintenance supervisor spoken language to printed text. Electronic machine maintenance supervisor of the spoken language may permit errors. Although I have reviewed the note, some errors may still exist. Aby HERNANDEZ: I assumed care of the patient at the time of handoff from the prior provider. On reassessment patient reports significant improvement in abdominal pain. Labs independently interpreted by me show no significant leukocytosis, normal renal function. CT imaging is independently interpreted by me, there is a mass in the pelvis adjacent to the uterus. I had an interactive discussion with patient regarding her presentation and workup. I am concerned that she could potentially have a malignancy within the pelvis. Recommend she follow-up with her PCP as soon as possible for formal ultrasound and further workup. He was agreeable to plan and was discharged in stable condition. Critical Care <Abarn Stein MD - Last Filed: 10/18/24 23:10> Critical Care Time Critical Care Time: No
[2024-10-18] MEDS: SODIUM CHLORIDE 0.9% 10ML SYR (RAD ONLY) 10 ML IV (23:36)
[2024-10-18] MEDS: IOPAMIDOL-370 (76%);100ML BOTTLE 75 ML IV (23:36)
[2024-10-19] VITALS: BP 136/81; PULSE 58; O2SAT 100
[2024-10-19 00:30] VITALS: BP 139/66; PULSE 79; O2SAT 100
[2024-10-19 00:48] VITALS: BP 139/66; PULSE 61; RESP 18; TEMP 36.6; O2SAT 100
--- NOTE | 2024-10-19 00:49 | PC.NURSE ---
IV discontinued. Catheter tip intact. Bleeding controlled.
== END 2024-10-19 00:54 | disposition home or self-care (01) ==
PROVIDERS: Emergency Medicine; Emergency Provider Emergency Medicine; PCP Nurse Practitioner
DX: R10.31 Right lower quadrant pain (principal); R19.00 Intra-abdominal and pelvic swelling, mass and lump, unspecified site
CPT/HCPCS: 74177; 80053; 83605; 85025; 96374; 96375; 99285; J1171; J1885; J2405; Q9967

== ENCOUNTER 2024-10-24 10:43 | Outpatient (CLI) | payer MEDICARE, SELFPAY ==
--- OUTSIDE RECORDS SUMMARY | 2024-10-24 10:45 | XMS_ITS ---
Author Organization Unknown [facility] Start Date Provider Encounter for Check-up [id number] LANA Mak
--- NOTE | 2024-10-24 10:46 | US_ITS ---
PROCEDURE: US TRANSVAGINAL CLINICAL INDICATION: MASS COMPARISON: CT CT ABDOMEN PELVIS W CON from 10/18/2024 FINDINGS: Transvaginal sonographic images of the pelvis were obtained. UTERUS: 4.7 cm x 3.6 cmx 2.2cm with a combined endometrial thickness of 12mm. The endometrium appears multi-cystic. LEFT OVARY: Not visualized. RIGHT OVARY: Not visualized. There is a solid-appearing mass in the cul-de-sac measuring 4.8 cm x 3.5 cm x 3.5 cm. Both ovaries are not visualized. There is no fluid in the cul-de-sac. IMPRESSION: 1. The uterus is anteverted and small. The endometrium is markedly thickened at 12 mm. It has a multi-cystic appearance. Would suggest endometrial sampling to rule out endometrial hyperplasia or carcinoma. 2. There is a solid, well-circumscribed mass in the cul-de-sac. It measures 4.8 cm in size and may be a fibroid. There is vascular flow within this mass. 3. No fluid in the cul-de-sac. Dictated by: Selvin Prakash MD 10/24/2024 14:09 Selvin Prakash MD in [place] 10/24/2024 14:09
== END 2024-10-24 23:59 | disposition home or self-care (01) ==
LOC: RAD 10:44
PROVIDERS: PCP Nurse Practitioner; Visit Provider Nurse Practitioner Family
DX: N85.8 Other specified noninflammatory disorders of uterus (principal); R93.89 Abnormal findings on diagnostic imaging of other specified body structures
CPT/HCPCS: 76830

== ENCOUNTER 2024-11-27 09:17 | Outpatient (CLI) | payer MEDICARE, SELFPAY ==
[2024-11-27 09:48] VITALS: BMI 19.9
--- NOTE | 2024-11-27 10:06 | ECG_ITS ---
APPROVED REPORT Exam: Resting ECG HR:58 bpm ECG Measurements Heart Rate 58 AXES SC 129 P 79 QRSd 82 QRS 50 QT 391 T 69 QTc 388 Conclusion SINUS BRADYCARDIA Left atrial abnormality BORDERLINE ECG UNCONFIRMED REPORT Electronically signed by : Michele Auguste MD 11/28/2024 09:02:02
[2024-11-27 10:21] LABS: Hematocrit 38.4 % (37.0-47.0); Hemoglobin 12.6 g/dL (12.2-16.2); Immature Granulocytes % 0.2 %; Mean Corpuscular HGB Conc 32.8 g/dL (31.8-35.4); Mean Corpuscular Hemoglobin 30.4 pg (27.0-31.2); Mean Corpuscular Volume 92.8 fl (81-99); Nucleated Red Blood Cells % 0 %; Platelet Count 277 K/mm3 (142-424); Red Blood Count 4.14 M/mm3 (4.20-5.40); Red Cell Distribution Width-SD 43.7 fL; White Blood Count 6.4 K/mm3 (4.8-10.8)
[2024-11-27 10:32] LABS: Anion Gap 11.0 mEq/L (5-15); Blood Urea Nitrogen 9 mg/dl (7-17); Calcium 10.6 mg/dl (8.4-10.2); Carbon Dioxide 22 mmol/L (22.0-30.0); Chloride 112 mmol/L (98-107); Creatinine Clearance Estimated 40 mL/min (50-200); Creatinine,Serum 0.70 mg/dl (0.52-1.04); Estimated Glomerular Filt Rate 82 ml/min (>60); GFR (African American) 100 ML/MIN (>60); Glucose 114 mg/dl (74-100); Potassium 4.0 mmoL/L (3.5-5.1); Sodium 141 mmol/L (136-145)
== END 2024-11-27 23:59 | disposition home or self-care (01) ==
LOC: PREOP 09:18
PROVIDERS: PCP Nurse Practitioner; Visit Provider Nurse Practitioner Obstetrics & Gynecology
DX: Z01.810 Encounter for preprocedural cardiovascular examination (principal); Z01.812 Encounter for preprocedural laboratory examination; R00.1 Bradycardia, unspecified; R94.31 Abnormal electrocardiogram [ECG] [EKG]
CPT/HCPCS: 80048; 85025; 93005

== ENCOUNTER 2024-12-03 06:05 | Day surgery (SDC) | payer MEDICARE, SELFPAY ==
[2024-11-28 08:26] VITALS: BMI 19.9
[2024-12-03] VITALS (11 sets, daily range): BP systolic 136–154; BP diastolic 71–84; PULSE 59–75; RESP 16–18; TEMP 36.3–38; O2SAT 98–100
[2024-12-03] MEDS: LACTATED RINGERS 1000ML 1,000 ML 25 ML IV ×2 (06:30→08:22)
--- NOTE | 2024-12-03 07:13 | EXP.ANES.CKL ---
[facility] Disclaimer: The information contained in this section may have been updated after the patient was seen, as this information can be updated by other users. Medical History Pelvic mass in female Hyperlipidemia Surgical History History of tubal ligation Family History Mother Cancer Other Family history of heart disease Social History Smoking Status: Former smoker alcohol intake: never substance use type: denies use current occupational status: retired Travel in the last 8 weeks?: None Have you lived/traveled outside US in past 30 days?: No Contact w/someone who lives/traveled outside US past 30 days?: No Exposure to someone with infectious disease in past 14 days?: No Do you have a fever (greater than 100.4 F or 38 C)?: No Have you tested positive for COVID-19?: No Exposed to someone with COVID-19 in past 14 days?: No Do you have a sore throat?: No Do you have a cough?: No Do you have any weakness?: No Are you experiencing any nausea/vomitting?: No Do you have any diarrhea?: No Are you experiencing any unusual bleeding?: No Do you have any muscle aches/pain?: No Do you have any abdominal pain?: No Are you experiencing loss of taste or smell?: No [facility] Anesthesia Checklist Patient Identification Patient Identification: Arm Band and Verbal (Name & ) Structural Data Admitted From: Home Planned Operative Procedure/s: D&C Consent for Planned Operative Procedure(s) Verified: Yes Verified Documents: Surgical Consent and History and Physical NPO Status Verified Time NPO: 00:00 Additional verifications Anesthesia Reactions: No Hx Blood Transfusions: No Blood Transfusion Reaction: No Airway Assessment Mallampati Score:: Class II Dentition: Poor Dentition Neurological Assessment Level of Consciousness: Awake, Alert and Appropriate Hx Seizures: No Numbness or tingling in extremities: No Anesthesia Plan Anesthesia Risk discussed: Yes Anesthesia Plan: Verified ASA Class: II Anesthesia Type: General
[2024-12-03] MEDS: SODIUM CHLORIDE IRRIG SOLUTION 3,000 ML 50 ML IR (07:47)
--- NOTE | 2024-12-03 08:17 | P.PNANES_ITS ---
[facility] Anesthesia Record Part I Anesthesia Record I Intake, IV Amount: 800 Hydration: Adequate Estimated blood loss (mL): 10 Urine output (mL): 0 Blood Pressure: 154/84 SaO2: 100 Pulse Rate: 73 Airway Patency: Patent Respiratory Rate: 18 Temperature: 97.7 F Patient is:: Awake and Stable Stable to PACU at:: 08:22
[2024-12-03] MEDS: ONDANSETRON 4MG/2ML VIAL 4 MG IV (08:19)
--- NOTE | 2024-12-03 08:37 | P.OP_ITS ---
Date of procedure: 12/03/24 Pre-op Diagnosis:: Postmenopausal bleeding, thickened endometrium Post-op Diagnosis:: Postmenopausal bleeding, endometrial polyp Procedure performed:: Hysteroscopy, dilation and curettage, MyoSure polypectomy Surgeon:: Selvin Prakash MD DISCHARGE DOOR OPERATOR:: Cheng Fernandez Anesthesia: LMA Estimated blood loss (mL): 25 Clinical Note:: She is a 74-year-old lady who had some postmenopausal bleeding. An ultrasound showed that she had a 12 mm multicystic endometrial thickening. As result of that she is offered hysteroscopy D&C. Operative findings:: She had a small anteverted uterus. There was a 1.5 cm polyp within the endometrial cavity. It completely filled the endometrial cavity. Operative note:: She was taken the operating room where LMA anesthesia was found be adequate. She was prepped regular sterile fashion lithotomy position. A weighted speculum placed in the vagina and the anterior lip of the cervix was grasped with a long Allis. Then using Dino dilators I was able to dilate the cervix and then finally dilated the cervix with Leonardo dilators. I then inserted a MyoSure hysteroscope into the uterine cavity and the findings were as previously dictated. Then using the MyoSure scope I shaved off the entire polyp from the endometrial cavity. This was followed by gentle curettage. I then injected 20 cc of 0.25% ropivacaine at the 3:00, 5:00, 7:00 and 9:00 positions of the cervix. She tolerated the procedure well and was taken recovery next condition. All sponge, instrument and needle counts were correct. The estimated blood loss was less than 5 cc. Condition: stable Disposition: PACU Specimens:: Endometrial polyp, endometrial curettings Complications:: None
--- NOTE | 2024-12-03 08:46 | SUR.PHASEI ---
0842 Pt vital signs stable. Sitting up in stretcher 0843 Pt trasported to recovery by stretcher.Report given to Andrade
--- NOTE | 2024-12-03 09:56 | P.PNANES_ITS ---
[facility] Anesthesia Record Part II Anesthesia Record Part II Discharge Time: 08:42 Destination: Surgical Day Care (OP Surgery) PACU nurse assessment reviewed?: Yes Patient Condition:: Good Anesthesia Complications:: None Swallowing reflex intact?: Yes Airway Patency: Patent Cyanosis?: No Blood Pressure: 148/82 SaO2: 99 Respiratory Rate: 18 Pulse Rate: 72 Temperature: 97.7 F Mental Status: Alert & Oriented Pain level:: 0 Nausea and/or vomitting:: None Intake, IV Amount: 0 Hydration: Adequate
== END 2024-12-03 09:17 | disposition home or self-care (01) ==
PROVIDERS: PCP Nurse Practitioner; Visit Provider Nurse Practitioner Obstetrics & Gynecology
PROC: 0UDB8ZZ Extraction of Endometrium, Via Natural or Artificial Opening Endoscopic (ICD-10-PCS; CPT 58558; principal; 2024-12-03 07:30)
DX: N95.0 Postmenopausal bleeding (principal); N84.0 Polyp of corpus uteri; E78.5 Hyperlipidemia, unspecified; Z87.891 Personal history of nicotine dependence; Z79.899 Other long term (current) drug therapy
CPT/HCPCS: 58558; 88305; 96374; J1100; J2003; J2405; J2704; J2795; J3010; J7120

== ENCOUNTER 2024-12-31 08:33 | Emergency (ER) | payer MEDICARE, SELFPAY ==
[2024-12-31 08:49] VITALS: BP 170/79; PULSE 62; RESP 20; TEMP 36.2; O2SAT 99; BMI 19.9
--- NOTE | 2024-12-31 08:54 | ED_ITS ---
Discharge Plan Disposition Patient Disposition: Home, Self-Care Prescriptions Prescriptions: New oxycodone 5 mg tablet 5 mg PO Q6H PRN (Reason: pain) Qty: 12 0RF ondansetron 4 mg tablet,disintegrating 4 mg PO Q6H PRN (Reason: nausea and vomiting) Qty: 16 0RF No Action hydroxyzine HCl 25 mg tablet 25 mg PO DAILY Patient Comments: TAKE 1 TABLET BY MOUTH EVERY 8 HOURS NEEDED oxycodone-acetaminophen 5-325 mg tablet 1 tab PO Q6H PRN (Reason: pain) Qty: 6 0RF pravastatin 40 mg Tablet 40 mg PO DAILY Referrals Follow up/Referrals: Thai (ED),VINEET Howell [Primary Care Provider, Emergency Medicine] - See instructions Activity Restrictions/Add. Instructions Additional Instructions/Restrictions: Your CT scan showed a mass in the right pelvis that was seen on previous studies as well. It has not increased in size. This is likely the source of your pain. I encourage you to follow-up with your [facility] physician for further workup on what this lesion could be and for continued management of your pain. You are being prescribed a short course of oxycodone as well as Zofran to help with your symptoms. If you develop any new or worsening symptoms, or if you become concerned for your health for any reason, return to the emergency department for evaluation. Clinical Impressions Clinical Impression: Abdominal or pelvic swelling, mass, or lump, right lower quadrant, Abdominal pain, RLQ Instructions Patient Instructions: DI for Acute Abdominal Pain Print Language Print Language: Colombian Discharge ED Provider: Pan Barrios General Adult HPI General Chief complaint: Abdominal Pain Stated complaint: Abd. Pain/vomiting Time Seen by Provider: 12/31/24 08:51 History of Present Illness HPI narrative: Shahnaz Stevenson is a 74y female with a history of postmenopausal vaginal bleeding status post intrauterine polyp removal on 12/03/2024 with resolution of her abnormal vaginal bleeding, removal hyperlipidemia, tubal ligation who presents to the emergency department for complaints of waxing and waning right lower quadrant abdominal pain. Patient states that she was woken from sleep at approximately 5:00 this morning with right lower quadrant abdominal pain that radiates to her right thigh. She states that she has had 4 episodes of vomiting. She states that the pain does not radiate to her back. She denies any dysuria or hematuria. She states that she has not had any additional vaginal bleeding or complications from her surgery. She reports feeling hot this morning but does not know if she had a fever. She denies any additional abdominal surgeries. She denies any recent diarrhea and reports normal bowel movements. Related Data Home Medications ?Medication ?Instructions ?Recorded ?Confirmed pravastatin 40 mg tablet 40 mg PO DAILY Cholesterol 0 12/30/21 12/18/24 hydroxyzine HCl 25 mg tablet 25 mg PO DAILY 03/26/24 0 12/18/24 Previous Rx's ?Medication ?Instructions ?Recorded oxycodone-acetaminophen 5 mg-325 1 tab PO Q6H PRN pain #6 tabs 12/03/24 mg tablet ondansetron 4 mg disintegrating 4 mg PO Q6H PRN nausea and 12/31/24 tablet vomiting #16 tabs oxycodone 5 mg tablet 5 mg PO Q6H PRN pain #12 tab s 12/31/24 Allergies Allergy/AdvReac Type Severity Reaction Status Date / Time No Known Allergies Allergy Verified 12/18/24 10:55 [facility] Disclaimer: The information contained in this section may have been updated after the patient was seen, as this information can be updated by other users. Medical History Pelvic mass in female Hyperlipidemia Surgical History History of tubal ligation Family History Mother Cancer Other Family history of heart disease Social History Smoking Status: Never smoker alcohol intake: never substance use type: denies use current occupational status: retired Travel in the last 8 weeks?: None Other Medical History Have you received the Pneumonia Vaccine: No ROS Obtained: Yes Systems reviewed as appropriate & no additional complaints except as documented Physical Exam General General appearance: alert and in no apparent distress Comment: uncomfortable appearing Head Head exam: atraumatic Eye Eye exam: Present normal appearance ENT ENT exam: Present normal external ear exam Neck Neck exam: Present full ROM Chest Chest inspection: Present symmetric chest wall rise Respiratory Respiratory exam: Present normal lung sounds bilaterally; Absent respiratory distress Cardiovascular Cardiovascular exam: Present regular rate and normal rhythm Abdominal Exam Abdominal exam: Present soft, tenderness (Generalized but more focally in the right lower quadrant and left lower quadrant) and guarding (Voluntary); Absent distention or rigidity Extremities Exam Extremities exam: Present normal inspection Back Exam Back exam: Present normal inspection Neurological Exam Neurological exam: Present alert and oriented X3 Psychiatric Psychiatric exam: Present normal affect Skin Skin exam: Present warm and dry Medical Decision Making Medical Records Screening: Per USPSTF and CDC recommendations, given the prevalence of disease in our region, it is our hospital?s policy to screen for HIV and viral Hepatitis for all patients aged 18 and over and those with ongoing risk factors. Lucas Inquiry Pt receiving controlled substance: Yes Lucas was queried for this patient: Yes Risks and benefits of using a controlled substance: were discussed with pt by me Vital Signs: 12/31/24 08:49 12/31/24 10:01 12/31/24 10:30 Temperature 97.2 F L Temperature Source Tympanic Pulse Rate 78 76 Pulse Rate [Right] 62 Respiratory Rate 20 Blood Pressure 162/74 H 162/64 H Blood Pressure [Right Arm] 170/79 H Blood Pressure Mean [Right Arm] 109 02 Sat by Pulse Oximetry 99 100 100 Oxygen Delivery Method Room Air 12/31/24 11:00 12/31/24 11:46 Temperature 97.7 F Temperature Source Pulse Rate 61 66 Pulse Rate [Right] Respiratory Rate 18 Blood Pressure 155/68 H 162/80 H Blood Pressure [Right Arm] Blood Pressure Mean [Right Arm] 02 Sat by Pulse Oximetry 98 Oxygen Delivery Method Lab Data Lab Results 12/31/24 08:40: Urine Color Yellow, Urine Appearance Clear, Urine pH 5.5, Ur Specific [address] 1.020, Urine Protein Negative, Urine Glucose (UA) Negative, Urine Ketones Negative, Urine Blood Trace-i, Urine Nitrate Negative, Urine Bilirubin Negative, Urine Urobilinogen 0.2, Ur Leukocyte Esterase 1+ A, Urine RBC None, Urine WBC None, Ur Squamous Epith Cells None, Urine Bacteria None 12/31/24 08:52: WBC 10.0, RBC 4.19 L, Hgb 12.9, Hct 39.2, MCV 93.6, MCH 30.8, MCHC 32.9, RDW 13.1, Plt Count 278, MPV 10.4, Neut % (Auto) 72.9, Lymph % (Auto) 20.0, Brewster % (Auto) 4.6, Eos % (Auto) 0.8, Baso % (Auto) 1.4, Neut # (Auto) 7.3, Lymph # (Auto) 2.0, Brewster # (Auto) 0.5, Eos # (Auto) 0.1, Baso # (Auto) 0.1, Sodium 141, Potassium 4.0, Chloride 111 H, Carbon Dioxide 23, Anion Gap 11.0, BUN 12, Creatinine 0.70, Estimated Creat Clear 40, Estimated GFR 82, Est GFR ( Amer) 100, Glucose 140 H, Lactate 1.0, Calcium 10.4 H, Magnesium 1.7, Total Bilirubin 0.7, AST 22, ALT 7 L, Alkaline Phosphatase 89, C-Reactive Protein 1.2, Total Protein 7.9, Albumin 4.3, Globulin 3.6 H, Albumin/Globulin Ratio 1.2 12/31/24 08:52 12/31/24 08:52 Orders (Tests/Meds): ED MEDICATIONS Discontinued Medications Generic Name Dose Route Start Last Admin Trade Name Freq PRN Reason Stop Dose Admin Lactated Ringer's 1,000 mls @ 999 mls/hr 12/31/24 09:03 12/31/24 10:20 Lactated Ringer's 1000 Ml Bag IV 12/31/24 10:03 Infused .Q1H1M ONE Infusion Iopamidol 75 ml 12/31/24 09:38 12/31/24 09:38 Iopamidol-370 (76%);100ml Bottle IV 12/31/24 09:39 75 ml ONCE ONE Administration Morphine Sulfate 4 mg 12/31/24 09:01 12/31/24 09:21 Morphine 4mg/Ml Syringe IV 12/31/24 09:02 4 mg ONCE ONE Administration Ondansetron HCl 4 mg 12/31/24 09:01 12/31/24 09:20 Ondansetron 4mg/2ml Vial IV 12/31/24 09:02 4 mg ONCE ONE Administration Sodium Chloride 10 ml 12/31/24 09:38 12/31/24 09:38 Sodium Chloride 0.9% 10ml Syr (Rad Only) IV 12/31/24 09:39 10 ml ONCE ONE Administration ORDERS Category Date Time Status CT abdomen pelvis w con Stat Cat Scan 12/31/24 09:01 Completed CBC w/Auto Diff [Complete Blood Count Auto Diff] Stat Lab 12/31/24 08:52 Completed CMP [Comprehensive Metabolic Panel] Stat Lab 12/31/24 08:52 Completed CRP [C-Reactive Protein] Stat Lab 12/31/24 08:52 Completed Lactic Acid Stat Lab 12/31/24 08:52 Completed Magnesium Stat Lab 12/31/24 08:52 Completed UA [Urinalysis and Microscopic] Stat Lab 12/31/24 08:40 Completed Urine Culture Stat Micro 12/31/24 08:40 Received Medical Decision Narrative: Shahnaz Stevenson is a 74y female with a history of postmenopausal vaginal bleeding status post intrauterine polyp removal on 12/03/2024 with resolution of her abnormal vaginal bleeding, removal hyperlipidemia, tubal ligation who presents to the emergency department for complaints of waxing and waning right lower quadrant abdominal pain. Patient states that she was woken from sleep at approximately 5:00 this morning with right lower quadrant abdominal pain that radiates to her right thigh. She states that she has had 4 episodes of vomiting. She states that the pain does not radiate to her back. She denies any dysuria or hematuria. She states that she has not had any additional vaginal bleeding or complications from her surgery. She reports feeling hot this morning but does not know if she had a fever. She denies any additional abdominal surgeries. She denies any recent diarrhea and reports normal bowel movements. On arrival, patient is hypertensive with blood pressure 170/79, heart rate within normal limits, afebrile, oxygen saturation 99% on room air. Physical exam, stated above, revealed an overall nontoxic-appearing female who appears uncomfortable. She is holding her abdomen on the right lower quadrant. She has tenderness generally throughout the abdomen but more focally in the right lower quadrant. She does have voluntary guarding. No hernias are appreciated. She is nonperitonitic. Differential diagnosis includes, but is not limited to: Appendicitis, femoral hernia, incarcerated hernia, intra-abdominal abscess, colitis, urinary tract infection, among others. The most morbid conditions were considered and workup was based on these. Workup in the Emergency Department included: 4 mg IV Zofran for nausea, 4 mg IV morphine for pain, 1 L lactated ringer, urinalysis, magnesium level, lactic acid, CMP, CBC with differential, CRP, CT abdomen/pelvis with IV contrast Patient's labs show no leukocytosis, no anemia, platelets within normal limits, CMP unremarkable nonactionable. Liver enzymes and bilirubin within normal limits. Magnesium normal at 1.7. Urinalysis with 1+ leukocyte esterase but 0 white blood cells, 0 red blood cells. No bacteria, nitrate negative. CT imaging was interpreted by me personally. Appendix appears normal. No free fluid. There is a right adnexal mass with unclear etiology per radiology. The origin is also unclear. This is not changed from previous exam. Is felt that this is likely the source of the patient's symptoms, however the etiology of this mass is unclear at this time. Patient is already established with [facility] physician and I encouraged her to follow-up with them regarding this mass as it will likely need further workup. Patient still having some pain at this time and will prescribe short course of oxycodone as well as Zofran to help with nausea. Her workup has otherwise been unremarkable for any acute pathology. I do feel that she is appropriate for discharge at this time. I did give her return precautions. All questions were answered. She demonstrated understanding and was in agreement this plan. She was then discharged from the emergency department in stable condition. Critical Care Critical Care Time Critical Care Time: No
--- NOTE | 2024-12-31 09:01 | CT_ITS ---
FINAL REPORT TECHNIQUE: Thin section axial images are obtained through the abdomen and pelvis after intravenous contrast. Reconstruction images were obtained from the axial data. Exam was performed using dose reduction techniques. CLINICAL HISTORY: RLQ pain, recent surgery. Abscess vs appendicitis COMPARISON: 10/19/2024 FINDINGS: LUNG BASES: Lung bases are clear. Heart size is normal. LIVER: Homogeneous. No focal lesion. GALLBLADDER/BILIARY SYSTEM: Gallbladder is present. No gallstones. No biliary dilatation. SPLEEN: Unremarkable. PANCREAS: Unremarkable. ADRENALS: Unremarkable. KIDNEYS/URETERS/BLADDER: Right kidney is malrotated. No hydronephrosis, renal mass, or renal stone. Unremarkable urinary bladder. GI TRACT: Moderate stool is present. No small bowel obstruction or dilatation. Normal appendix. No acute colon abnormality. PELVIC ORGANS: Uterus is small. Again seen is a mass in the deep right pelvis which is unchanged at 5 cm. This appears to be posterior to the right ovary. LYMPH NODES/RETROPERITONEUM/MESENTERY: No lymphadenopathy. No abdominal aortic aneurysm. ABDOMINAL WALL: The abdominal wall is intact. FREE FLUID: No ascites. BONES: No acute osseous abnormality. IMPRESSION: 1. Normal appendix. 2. Right adnexal mass, unchanged from prior exam. This is not a normal finding in a patient of this age and etiology is unclear. Organ of origin is also unclear. Recommend RN PRACTITIONER consult and MRI of the pelvis with and without contrast (female pelvis protocol). Reviewed, Interpreted and Dictated by Marissa Mccabe MD Transcribed by Sybil Gu Authenticated and [facility]
[2024-12-31 09:06] LABS: Microscopic, Urine URINE MICROSCOPIC (MICROSCOPIC)
[2024-12-31 09:12] LABS: Bilirubin,Urine Negative (Negative); Color,Urine YELLOW (Yellow); Glucose,Urine (UA) Negative (Negative); Ketones,Urine Negative (Negative); Leukocyte Esterase,Urine 1+ (Negative); PH,Urine 5.5 (5.0-8.5); Protein,Urine Negative (Negative); Specific Gravity, Urine 1.020 (1.005-1.030); Urobilinogen,Urine 0.2 EU/dl (0.2)
[2024-12-31 09:16] LABS: Alanine Aminotransferase 7 U/L (12-78); Albumin Level 4.3 g/dl (3.5-5.0); Albumin/Globulin Ratio 1.2 (1.1-1.8); Alkaline Phosphatase 89 U/L (38-126); Aspartate Amino Transferase 22 U/L (14-36); Bilirubin,Total 0.7 mg/dl (0.2-1.3); Carbon Dioxide 23 mmol/L (22.0-30.0); Globulin 3.6 g/dL (1.3-3.2); Magnesium 1.7 mg/dl (1.6-2.3); Potassium 4.0 mmoL/L (3.5-5.1); Sodium 141 mmol/L (136-145); Total Protein,Serum 7.9 g/dl (6.3-8.2)
[2024-12-31 09:17] LABS: Anion Gap 11.0 mEq/L (5-15); Blood Urea Nitrogen 12 mg/dl (7-17); Calcium 10.4 mg/dl (8.4-10.2); Chloride 111 mmol/L (98-107); Creatinine Clearance Estimated 40 mL/min (50-200); Creatinine,Serum 0.70 mg/dl (0.52-1.04); Estimated Glomerular Filt Rate 82 ml/min (>60); GFR (African American) 100 ML/MIN (>60); Glucose 140 mg/dl (74-100)
[2024-12-31] MEDS: LACTATED RINGERS 1000ML 1,000 ML 999 ML IV (09:19)
[2024-12-31] MEDS: ONDANSETRON 4MG/2ML VIAL 4 MG IV (09:20)
[2024-12-31] MEDS: MORPHINE 4MG/ML SYRINGE 4 MG IV (09:21)
[2024-12-31 09:23] LABS: Hematocrit 39.2 % (37.0-47.0); Hemoglobin 12.9 g/dL (12.2-16.2); Immature Granulocytes % 0.3 %; Mean Corpuscular HGB Conc 32.9 g/dL (31.8-35.4); Mean Corpuscular Hemoglobin 30.8 pg (27.0-31.2); Mean Corpuscular Volume 93.6 fl (81-99); Nucleated Red Blood Cells % 0 %; Platelet Count 278 K/mm3 (142-424); Red Blood Count 4.19 M/mm3 (4.20-5.40); Red Cell Distribution Width-SD 44.6 fL; White Blood Count 10.0 K/mm3 (4.8-10.8)
[2024-12-31] MEDS: IOPAMIDOL-370 (76%);100ML BOTTLE 75 ML IV (09:38)
[2024-12-31] MEDS: SODIUM CHLORIDE 0.9% 10ML SYR (RAD ONLY) 10 ML IV (09:38)
[2024-12-31 09:42] LABS: C-Reactive Protein 1.2 mg/L (0-4)
[2024-12-31 10:01] VITALS: BP 162/74; PULSE 78; O2SAT 100
[2024-12-31 10:30] VITALS: BP 162/64; PULSE 76; O2SAT 100
[2024-12-31 11:00] VITALS: BP 155/68; PULSE 61; O2SAT 98
[2024-12-31 11:46] VITALS: BP 162/80; PULSE 66; RESP 18; TEMP 36.5; O2SAT 98
== END 2024-12-31 11:47 | disposition home or self-care (01) ==
PROVIDERS: Emergency Provider Student in an Organized Health Care Education/Training Program; PCP Nurse Practitioner
DX: R10.31 Right lower quadrant pain (principal); R19.03 Right lower quadrant abdominal swelling, mass and lump
CPT/HCPCS: 74177; 80053; 81001; 83605; 83735; 85025; 86140; 87086; 96361; 96374; 96375; 99284; J2270; J2405; J7120; Q9967